=== PATIENT | female | born 1975 | race Caucasian/White ===

== ENCOUNTER → 2019-01-06 | Outpatient (CLI) | payer OTHER ==
[~2019-01-06] MED LIST: LIDOCAINE 1% (MDV) 20 ML INJ ONE
== END | disposition home or self-care (01) ==
LOC: U/S 09:54
PROVIDERS: ATTEND Family Medicine
DX: E04.1 Nontoxic single thyroid nodule (principal)
CPT/HCPCS: 88104; 88305; 88313; Z7610